=== PATIENT | female | born 1955 | race Caucasian/White ===

== ENCOUNTER → 2017-09-12 | Outpatient (CLI) | payer MEDICARE, MEDICAID ==
[~2017-09-12] MED LIST: ALE10 PO; BAC15T TOP; CALC-963 PO; CEP500 PO; CETY454C2 TP; CHLO118L6 TP; CIP500 PO; COAL130S5 TOP; D ME PO; FLUT16SP20 NS; HYDR28.426 TP; IBU200 PO; LACTAID9000 UNIT PO; LOR5/325 PO; MENT120G15 TP; METR45CR9 TP; NAPR-1043 PO; OCUSOFT TOP; PHEN120S18 PO; PREN-85 PO; ROS10 PO; TRAM-420 PO; UBID100C33 PO; [UNRECOGNIZED DRUG - CODE] PO; [UNRECOGNIZED DRUG - CODE] TP; antiacid; vit d
--- NOTE | 2017-09-26 13:28 | RADIOLOGY IMAGING REPORT ---
FACILITY: [facility] PATIENT NAME: SHE CORDOBA : [id number] MR: [id number] V: [id number] EXAM DATE: ORDERING PHYSICIAN: NANDA HURST TECHNOLOGIST: Marysol Roberts PROCEDURE:BILATERAL DIGITAL SCREENING MAMMOGRAM WITH CAD ASSISTED INTERPRETATION & 3D TOMOSYNTHESIS COMPARISON:Prior mammograms 09/11/16, 07/27/15, 06/30/14, 04/22/13, 04/21/12, 04/17/11 INDICATIONS:SCREENING FINDINGS: A small to moderate amount of fibroglandular tissue is seen throughout the breasts. The parenchymal pattern has remained stable allowing for difference in mammographic technique & patient positioning. There is no evidence of malignant appearing mass, malignant appearing calcifications or other secondary sign of malignancy in either breast. DIAGNOSTIC CATEGORY 1--NEGATIVE. RECOMMENDATIONS: ROUTINE MAMMOGRAM AND CLINICAL EVALUATION. IMPRESSION: BIRADS 1: Negative No significant abnormality is seen Dictated by: Whitney Pedraza M.D. on 09/26/2017 at 12:23 Transcribed by: GREG on 09/26/2017 at 13:02 Approved by: Whitney Pedraza M.D. on 09/26/2017 at 13:27 [facility]
== END ==
LOC: MAMO 04:38
PROVIDERS: ATTEND Nurse Practitioner Family
DX: Z12.31 Encounter for screening mammogram for malignant neoplasm of breast (principal)
CPT/HCPCS: 77063; 77067

== ENCOUNTER → 2017-11-05 | Outpatient (CLI) | payer MEDICARE, MEDICAID ==
[~2017-11-05] MED LIST changes: +BARIUM SULFATE 148 GM POWDER ONE; +BARIUM SULFATE 240 ML ORAL SUS (NECTAR) ONE
--- NOTE | 2017-11-05 14:02 | RADIOLOGY IMAGING REPORT ---
FACILITY: [facility] PATIENT NAME: John Segovia : 1955 MR: [id number] V: [id number] EXAM DATE: ORDERING PHYSICIAN: NANDA HURST TECHNOLOGIST: Location: [facility] [place] Patient: John Segovia : 1955 Visit/Account:[id number] Date of Sevice: 11/05/2017 THYROID HISTORY: Multiple thyroid nodules COMPARISON: December 13, 2016 FINDINGS: SIZE: Normal. Right lobe: 4.8 x 1.6 x 2.2 cm Left lobe: 5.5 x 1.4 x 1.5 cm Isthmus: 2.3 mm PARENCHYMA: Homogeneous. NODULES: Right lobe: * Multiple small scattered cystic nodules are identified in the right lobe measuring up to 5 mm Left lobe: * There is a 4 mm well-circumscribed hypoechoic nodule in the mid left lobe Isthmus: * None discrete. VASCULARITY: Within normal limits. ADDITIONAL FINDINGS: None. IMPRESSION: There are scattered small benign-appearing cystic and solid nodules in both lobes all measuring less than 1 cm REFERENCE: 2015 [place] [employer] Management Guidelines for Adult Patients with Thyroid Nodules and D ifferentiated Thyroid Cancer: The [place] [employer] Guidelines Task Force on Thyroid Nodul es and Differentiated Thyroid Cancer. SONOGRAPHIC PATTERNS: * Benign: Purely cystic nodules (no solid component); estimated risk of malignancy <1 percent; no bi opsy recommended. * Very Low Suspicion: Spongiform or partially cystic nodules without any of the sonographic features described in low, intermediate, or high suspicion patterns; estimated risk of malignancy <3 percent; consider FNA at > 2 cm (Observation without FNA is also a reasonable option). * Low Suspicion: Isoechoic or hyperechoic solid nodule, or partially cystic nodule with eccentric so lid areas, without microcalcification, irregular margin or ETE (extra-thyroidal extension), or taller than wide shape; estimated risk of malignancy 5-10 percent; recommend FNA at >1.5 cm. * Intermediate Suspicion: Hypoechoic solid nodule with smooth margins without microcalcifications, E TE (extra-thyroidal extension), or taller than wide shape; estimated risk of malignancy 10-20 percent ; recommend FNA at > 1 cm. * High Suspicion: Solid hypoechoic nodule or solid hypoechoic component of a partially cystic nodule with one or more of the following features: irregular margins (infiltrative, microlobulated), microc alcifications, taller than wide shape, rim calcifications with small extrusive soft tissue component, evidence of ETE (extra-thyroidal extension); estimated risk of malignancy >70-90 percent; recommend FNA at > 1 cm. NOTES: * Although a sonographically suspicious subcentimeter thyroid nodule without evidence of extrathyroi tere extension or sonographically suspicious lymph nodes may be observed with close sonographic follow -up rather than pursuing immediate FNA, patient age and preference may modify decision-making. A > 50% interval increase in nodule volume and/or development of new suspicious sonographic features are felt to be a valid reasons for potential re-aspiration of a nodule previously shown to have benig n FNA cytology. Report Dictated By: Whitney Pedraza MD at 11/05/2017 1:56 PM Report E-Signed By: Whitney Pedraza MD at 11/05/2017 1:59 PM WSN:[email or web address]
--- NOTE | 2017-11-05 14:46 | RADIOLOGY IMAGING REPORT ---
FACILITY: [facility] PATIENT NAME: John Segovia : 1955 MR: [id number] V: [id number] EXAM DATE: ORDERING PHYSICIAN: NANDA HURST TECHNOLOGIST: Location: [facility] Patient: John Segovia : 1955 Visit/Account:[id number] Date of Sevice: 11/05/2017 Exam type: ESOPH VIDEO SWALLOWING History: Difficulty swallowing Comparison: None. Findings: The modified barium swallow was performed by the speech pathologist. Fluoroscopic assistance was pro vided. Patient received thin barium and various solids and a barium tablet. There is no demonstrati on of endotracheal aspiration or laryngeal penetration. Please see the speech pathologist report for complete details. The fluoroscopy dose area product was 277.39 micro-Zayas per meter squared IMPRESSION: 1. As above Report Dictated By: Whitney Pedraza MD at 11/05/2017 2:40 PM Report E-Signed By: Whitney Pedraza MD at 11/05/2017 2:41 PM WSN:[email or web address]
--- NOTE | 2017-11-05 14:51 | SLP MODIFIED BARIUM SWALLOW ---
Speech Language Pathology Modified Barium Swallow Evaluation Report Date of Evaluation: 11/05/17 Patient Name: John Segovia Patient : 1955, 62yr Physician: LAURIE Pritchett Clinician: Melva Oscar M.S., CCC-DRIER AND GRINDER TENDER BACKGROUND The patient is a 62 yr old female referred for an MBS to assess swallow structure and function as indicated by recent changes to swallow function with globus s/s of pharyngeal dysphagia including globus sensation indicated in area between suprasternal notch and laryngeal complex. Pt caregiver reports symptoms present for approximately 1 month and are more severe with foods over liquids. Oxygen Supplementation: No Level of Consciousness: Non altered Cognitive/Linguistic: pt following instructions and completed MBS without difficulty. No formal evaluation completed. Orientation: x4 Language: Pt followed instructions during MBS. Speech: pt was vocal but nonverbal during the evaluation Voice: difficult to assess d/t lack of vocalization. May be increased hoarseness. Habitual pitch is high and may not be functionally or physiologically optimal Non-verbal Oral Structure and Function: within functional limits for speech and swallow Pain with Swallow: Denies. MODIFIED BARIUM SWALLOW In conjunction with radiology, lateral view with trials of the following consistencies: thin barium liquid (noncarbonated), barium marked pureed, mechanical soft, and regular food consistencies, and a 1cm barium pill. ORAL STAGE Thin Liquids: no evidence of dysphagia . WNL Pureed Foods: no evidence of dysphagia . WNL Mechanical Soft Foods: no evidence of dysphagia . WNL Regular Foods: no evidence of dysphagia . WNL. PHARYNGEAL STAGE Thin Liquid: no evidence of dysphagia WNL. Pureed Food: no evidence of dysphagia WNL. Mechanical Soft Foods: no evidence of dysphagia WNL. Regular Food Consistency: no evidence of dysphagia WNL. Penetration/Aspiration Scale*: Thin liquid: Score of 1= Contrast does not enter airway Puree: Score of 1= Contrast does not enter airway Soft and regular solids: Score of 1= Contrast does not enter airway *(Onesimo et al. 1996) ESOPHAGEAL STAGE Caregiver reports physician suspects GERD with possible LPR. Peristaltic movement appears to be WNL during pill trial Cervical Esophagus: Materials witnessed clearing from cervical esophagus WNL. Thoracic Esophagus: Materials witnessed clearing from upper and mid thoracic esophagus WNL. Pill movement through lower thoracic esophagus slowed and stalled. Two additional pureed boluses were used to dislodge the pill. DAVID: Non witnessed. Laryngopharyngeal Reflux (LPR) None witnessed. SUMMARY Aspiration Risk: Low. No oral, pharyngeal, or esophageal stage dysphagia witnessed. No laryngeal penetration or aspiration witnessed. Pt. reported experiencing no symptoms of dysphagia during evaluation. 1.Dysphagia Severity Rating Scale (Gramigna, 2006; Rosendo et. al., 1990): 0, Normal swallow mechanism RECOMMENDATIONS 1. Speech Therapy: Not recommended at this time. 2. No modification in consistency of diet is indicated. Thank you for this referral. Please call [phone] to contact the DRIER AND GRINDER TENDER. Melva Oscar M.S., [facility] AND GRINDER TENDER Physician Signature Date MTDD
== END ==
LOC: US 01:20
PROVIDERS: ATTEND Nurse Practitioner Family
DX: E04.2 Nontoxic multinodular goiter (principal); R13.10 Dysphagia, unspecified
CPT/HCPCS: 74230; 76536

== ENCOUNTER → 2017-12-25 | Outpatient (CLI) | payer MEDICARE, MEDICAID ==
[~2017-12-25] MED LIST changes: -BARIUM SULFATE 148 GM POWDER ONE; -BARIUM SULFATE 240 ML ORAL SUS (NECTAR) ONE
--- NOTE | 2017-12-25 09:39 | RADIOLOGY IMAGING REPORT ---
FACILITY: [facility] [place] PATIENT NAME: John Segovia : 1955 MR: [id number] V: [id number] EXAM DATE: ORDERING PHYSICIAN: ALYSSA RICHEY TECHNOLOGIST: Location: [facility] [place] Patient: John Segovia : 1955 Visit/Account:[id number] Date of Sevice: 12/25/2017 Clinical history: Osteopenia. Comparison: 10/11/2015. LUMBAR SPINE: The bone mineral density (BMD) measured from L1-L4 correlates with a Z-score of -1.2 and a T-score of -2.4 which is osteopenia as defined by the World Health Organization. The corresponding risk of fra cture in the lumbar spine is increased 4-6 times compared with a young adult reference population. T his value has decreased by 2.2 % since the prior study. More than 5% change is considered significan t. HIP: Bone mineral density (BMD) measured in the left Total Hip region correlates with a Z-score of 0.2 and a T-score of -0.7 which is normal as defined by the World Health Organization. The corresponding ri sk of fracture in the hip is increased 1-2 times compared with a young adult reference population. T his value has increased by 7.1 % since the prior study. More than 5% change is considered significan t. Bone mineral density (BMD) measured in the left femoral neck correlates with a Z-score of 0.1 and a T -score of -1.1 which is osteopenia as defined by the World Health Organization. The corresponding ri sk of fracture in the hip is increased 2-3 times compared with a young adult reference population. T his value has decreased by 1.9 % since the prior study. More than 5% change is considered significan t. Bone mineral density (BMD) measured in the left Femoral Neck region measures 0.885 g/cm2. IMPRESSION: 1. Lumbar spine: Osteopenia. There has been no significant change in the bone mineral density sinc e the previous exam. 2. Left total hip: Normal. There has been significant increase in the bone mineral density since the previous exam. 3. Left Femoral Neck: Osteopenia. There has been no significant change in the bone mineral density s ilene the previous exam 4. Left femoral neck bone mineral density: 0.885 g/cm2. The next DEXA scan of this patient should include the following sites: Lumbar spine and left hip. FRAX(R) WHO Fracture Risk Assessment Tool link: http://www.shef.ac.uk/FRAX/tool.jsp?locationValue=9 PLEASE NOTE: 1) The World Health Organization defines low BMD as follows: T-score Normal > -1 Osteopenia < -1 and > -2.5 Osteoporosis < -2.5 without fractures Established osteoporosis < -2.5 with fractures 2) In general, you may wish to consider: Diagnosis Treatment Follow-up DEXA Normal BMD Prevention 2-3 years Osteopenia Prevention/therapy 1-2 years Osteoporosis Therapy Yearly 3) Fracture risk estimated from the T-score is more accurate for vertebral fractures (often spontane ous) than for hip fractures Report Dictated By: Maria Isabel Ivory MD at 12/25/2017 9:31 AM Report E-Signed By: Maria Isabel Ivory MD at 12/25/2017 9:35 AM WSN:[email or web address]
== END ==
LOC: RAD 00:24
PROVIDERS: ATTEND Nurse Practitioner Family
DX: M85.88 Other specified disorders of bone density and structure, other site (principal)
CPT/HCPCS: 77080

== ENCOUNTER → 2018-08-12 | Outpatient (CLI) | payer MEDICARE, MEDICAID ==
--- NOTE | 2018-08-12 11:46 | RADIOLOGY IMAGING REPORT ---
FACILITY: [facility] [place] PATIENT NAME: John Segovia : 1955 MR: [id number] V: [id number] EXAM DATE: ORDERING PHYSICIAN: ALYSSA RICHEY TECHNOLOGIST: Location: [facility] [place] Patient: John Segovia : 1955 Visit/Account:[id number] Date of Sevice: 08/12/2018 Exam type: L-SPINE 2 OR 3 VIEW History: Fall with pain Comparison: Thoracic spine performed today Findings: Their are five nonrib-bearing lumbar-type vertebral bodies present. There is no evidence of acute fr actures or subluxations. There are mild spondylotic changes at T12-L1.. IMPRESSION: 1. No evidence of acute fractures or subluxations in the lumbar spine. Mild spondylotic changes T12-L1 Report Dictated By: Whitney Pedraza MD at 08/12/2018 11:39 AM Report E-Signed By: Whitney Pedraza MD at 08/12/2018 11:40 AM WSN:[email or web address]
--- NOTE | 2018-08-12 11:47 | RADIOLOGY IMAGING REPORT ---
FACILITY: [facility] PATIENT NAME: John Segovia : 1955 MR: [id number] V: [id number] EXAM DATE: ORDERING PHYSICIAN: ALYSSA RICHEY TECHNOLOGIST: Location: [facility] Patient: John Segovia : 1955 Visit/Account:[id number] Date of Sevice: 08/12/2018 Exam type: XR THORACIC SPINE AP & LAT History: Fall with pain Comparison: Lateral chest February 25, 2009. Findings: There is a gentle levoconvex curvature to the thoracic spine. There are moderate multilevel spondylo tic changes present which have increased when compared to the prior study. No evidence of acute fractures or subluxations identified. IMPRESSION: 1. Moderate multilevel spondylotic changes of the thoracic spine which have increased when compared to the prior study No evidence of acute fracture or subluxation Report Dictated By: Whitney Pedraza MD at 08/12/2018 11:40 AM Report E-Signed By: Whitney Pedraza MD at 08/12/2018 11:42 AM WSN:[email or web address]
== END ==
LOC: RAD 10:13
PROVIDERS: ATTEND Nurse Practitioner Family
DX: M47.894 Other spondylosis, thoracic region (principal)
CPT/HCPCS: 72070; 72100

== ENCOUNTER → 2018-11-23 | Outpatient (CLI) | payer MEDICARE, MEDICAID ==
--- NOTE | 2018-11-23 16:53 | RADIOLOGY IMAGING REPORT ---
FACILITY: [facility] [place] PATIENT NAME: John Segovia : 1955 MR: [id number] V: EXAM DATE: ORDERING PHYSICIAN: NANDA HURST TECHNOLOGIST: Location: [facility] Patient: John Segovia : 1955 Visit/Account: Date of Sevice: 11/23/2018 KNEE 4 VIEW RIGHT Four view examination right knee. FINDINGS: Intramedullary natalie is seen extending through the distal right femur. Two stabilizing screws through the femoral metaphysis. Both the medial and lateral joint compartments of the right knee are well-ma intained with no DJD or joint space narrowing. Patellofemoral joints well-maintained. Patellar sunr ise views demonstrates no patellar tilt or translation. There is no joint effusion. IMPRESSION: 1. Unremarkable right knee with no acute bony pathology or any DJD. Well-maintained intramedullary natalie extending through the femur. Report Dictated By: Amrik Arguelles MD at 11/23/2018 4:45 PM Report E-Signed By: Amrik Arguelles MD at 11/23/2018 4:47 PM WSN:[email or web address]
--- NOTE | 2018-11-23 16:56 | RADIOLOGY IMAGING REPORT ---
FACILITY: [facility] [place] PATIENT NAME: John Segovia : 1955 MR: [id number] V: EXAM DATE: ORDERING PHYSICIAN: NANDA HURST TECHNOLOGIST: Location: [facility] Patient: John Segovia : 1955 Visit/Account: Date of Sevice: 11/23/2018 HIP RIGHT Pelvis right hip films FINDINGS: Study demonstrates no acute pelvic pathology. Pelvic girdle is intact. Right hip films demonstrates an intrarenal a natalie extending through the femur. Two femoral screws are seen extending into the fem oral head. The right hip joints well-maintained with no significant DJD. Lower lumbar spines well-maintained with no significant DJD. SI joints demonstrates minimal degenera tive change. Soft tissues are unremarkable. IMPRESSION: 1. Femoral natalie and femoral neck screws within the proximal femur. No acute bony pathology. No orth opedic hardware fracture or loosening. Report Dictated By: Amrik Arguelles MD at 11/23/2018 4:47 PM Report E-Signed By: Amrik Arguelles MD at 11/23/2018 4:51 PM WSN:[email or web address]
== END ==
LOC: RAD 15:51
PROVIDERS: ATTEND Nurse Practitioner Family
DX: Z96.7 Presence of other bone and tendon implants (principal)

== ENCOUNTER → 2018-12-18 | Outpatient (CLI) | payer MEDICARE, MEDICAID ==
--- NOTE | 2018-12-18 15:19 | RADIOLOGY IMAGING REPORT ---
FACILITY: [facility] PATIENT NAME: SHE CORDOBA : [id number] MR: [id number] V: [id number] EXAM DATE: ORDERING PHYSICIAN: NANDA HURST TECHNOLOGIST: Marysol Roberts PROCEDURE: BILATERAL DIGITAL SCREENING MAMMOGRAM WITH CAD ASSISTED INTERPRETATION & 3D TOMOSYNTHESIS REASON FOR STUDY: Screening FAMILY HISTORY OF BREAST CANCER: Unknown BREAST PROCEDURES/TREATMENTS: None reported COMPARISON: 09/12/17, 09/11/16, 07/27/15, 06/20/14, 04/22/13, 04/21/12 VIEWS OBTAINED: Bilateral 2D full field CC & MLO projections BREAST DENSITY: There are scattered areas of fibroglandular density throughout the breasts. MAMMOGRAM FINDINGS: The parenchymal pattern has remained stable allowing for difference in mammographic technique & patient positioning. IMPRESSION: BIRADS 1: Negative. DIAGNOSTIC CATEGORY 1--NEGATIVE. RECOMMENDATIONS: ROUTINE MAMMOGRAM AND CLINICAL EVALUATION. Dictated by: Whitney Pedraza M.D. on 12/18/2018 at 10:07 Transcribed by: KATE on 12/18/2018 at 11:06 Approved by: Whitney Pedraza M.D. on 12/18/2018 at 15:18 [facility]
== END ==
LOC: MAMO 02:13
PROVIDERS: ATTEND Nurse Practitioner Family
DX: Z12.31 Encounter for screening mammogram for malignant neoplasm of breast (principal)
CPT/HCPCS: 77063; 77067

== ENCOUNTER → 2019-02-02 | Outpatient (CLI) | payer MEDICARE, MEDICAID ==
[~2019-02-02] MED LIST changes: +BARIUM SULFATE 148 GM POWDER ONE
--- NOTE | 2019-02-02 13:44 | SLP MODIFIED BARIUM SWALLOW ---
MODIFIED BARIUM SWALLOW STUDY REPORT Ordering Physician: Marquis Pritchett Clinician: Melva Oscar MS, CCC-GUILLOTINE TRIMMER Type of Assessment: MBSS Patient: John Segovia : 1955, 63yo, F Evaluation Date: 02-02-19 BACKGROUND The patient is an 63 year-old female who presents for an outpatient modified barium swallow study (MBSS) due to history of dysphagia. 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 She attended the evaluation with her caregiver who provided all background/medical information not obtained from the medical record. The patient is largely nonverbal. She has been consuming a modified diet of soft foods and regular /thin liquids which has reportedly decreased s/s of dysphagia. An MBSS will provide additional information regarding the presence of dysphagia including aspiration. MODIFIED BARIUM SWALLOW ASSESSMENT Diagnosis: dysphagia Past Medical Hx: Rafiq Roland syndrome, cognitive impairment Pain with Swallow: no overt signs of pain with swallow. Pt is nonverbal LOC / Participation: Alert and cooperative. Follows instructions: Yes Orientation: unknown Sialorrhea: No Xerostomia: No Oral Hygiene: WFL Supplemental Oxygen Use: No COPD Dx: No Overall Impression: Normal swallow mechanism but with increased risk of aspiration (one aspiration event witnessed; immediately following swallow) with multiple consecutive swallows of regular/thin liquids. No other dysphagia witnessed. In conjunction with radiology, the pt was seated in the lateral view. The following consistencies were trialed: thin liquids via cup sip, pureed solids, mechanically altered solids, advanced solids, mixed consistencies (thin liquids, mechanical soft foods), and a 1cm barium pill paired with thin liquids. Oral phase: Mild dysphagia with regular food consistencies and barium pill. Poor mastication and poor A-P transit of solids and pill. Pt used multiple (4- 5) swallows of thin liquid to achieve A-P oral transit with barium pill, resulting in immediate penetration/aspiration of thin liquids. No abnormal structure of function witnessed. Pharyngeal phase: Immediately penetration/aspiration following 4-5 consecutive swallows of thin liquids. Silent aspiration. Pt coughed to clear aspirated material following direct instruction to do so. No penetration / aspiration with nonconsecutive thin liquid swallows witnessed. Esophageal phase: No abnormal structure of function witnessed as food/liquids passed through UES and cleared upper esophagus. Penetration/Aspiration Scale (PAS)*: Following multiple 4-5 consecutive swallows of thin liquid: Score of 8: Material enters the airway, passes below the vocal folds, and no effort is made to eject. SUMMARY and RECOMMENDATIONS Intermittent pharyngeal stage dysphagia. Multiple, consecutive thin liquid swallows appear to tax the swallow mechanism resulting in increased risk of penetration and aspiration. Swallow mechanism appears to functional well enough to manage nonconsecutive thin liquid swallows. Mild oral dysphagia with regular foods. Aspiration Risk: increased with consecutive thin liquid swallows. Dysphagia Outcome Severity Scale: 2; Mild dysphagiaoropharyngeal dysphagia present which can be managed by specific swallow suggestions. Slight modification in consistency of diet is indicated: avoid consecutive thin liquid swallows, offer patient soft foods, avoid diffiucult to chew and dry foods. RECOMMENDATIONS Speech Therapy Need : Not at this time 1. Avoid consecutive thin liquid swallows 2. Offer patient soft foods and avoid difficult to chew and dry foods. 3. Present pills with pureed consistency foods (e.g., applesauce) instead of liquids. Thank you for this referral. Please call [phone] to contact speech therapy at [facility] Rehabilitation Services Dept Melva Oscar M.S., [facility]-GUILLOTINE TRIMMER Speech Therapist MIKO
--- NOTE | 2019-02-02 14:39 | RADIOLOGY IMAGING REPORT ---
FACILITY: [facility] PATIENT NAME: John Segovia : 1955 MR: [id number] V: [id number] EXAM DATE: ORDERING PHYSICIAN: NANDA HURST TECHNOLOGIST: [facility]: John Segovia : 1955 Visit/Account:[id number] Date of Sevice: 02/02/2019 Videofluoroscopic modified barium swallow study Indication: Dysphagia Findings: Various solid and liquid barium coated substances were administered to the patient by the [facility] therapist. The study was directly monitored by Dr. Sarah. There is mild aspiration with the patient swallowing a pill. Refer to speech pathology notes for full description. A fluoroscopy exposure of 630.16 mcGym2 DAP was recorded. IMPRESSION: Abnormal video fluoroscopic assisted swallowing study as above. Report Dictated By: Shayne Sarah at 02/02/2019 2:30 PM Report E-Signed By: Shayne Sarah at 02/02/2019 2:31 PM WSN:[email or web address]
== END ==
LOC: NUC 07:08
PROVIDERS: ATTEND Nurse Practitioner Family
DX: R93.3 Abnormal findings on diagnostic imaging of other parts of digestive tract (principal)
CPT/HCPCS: 74230